=== PATIENT | male | born 1980 | race African-American/Black ===

== ENCOUNTER 2022-11-18 07:50 | Emergency (ER) | payer OTHER ==
[2022-11-18] MEDS ORDERED: Ketorolac Tromethamine 30 MG/ML VIAL ONE (08:31)
== END 2022-11-18 08:35 | disposition home or self-care (01) ==
LOC: CSHERS 07:50
DX: S13.4XXA Sprain of ligaments of cervical spine, initial encounter (principal); E11.9 Type 2 diabetes mellitus without complications; I10 Essential (primary) hypertension; F17.210 Nicotine dependence, cigarettes, uncomplicated; V89.2XXA Person injured in unspecified motor-vehicle accident, traffic, initial encounter
CPT/HCPCS: 96372; 99283; J1885

== ENCOUNTER 2022-11-29 10:39 | Emergency (ER) | payer OTHER, MEDICARE | END 2022-11-29 11:16 | disposition home or self-care (01) | LOC: CSHERS 10:39 | DX: S16.1XXA Strain of muscle, fascia and tendon at neck level, initial encounter (principal); E11.9 Type 2 diabetes mellitus without complications; I10 Essential (primary) hypertension; F17.210 Nicotine dependence, cigarettes, uncomplicated; V89.2XXA Person injured in unspecified motor-vehicle accident, traffic, initial encounter | CPT/HCPCS: 99283 ==